=== PATIENT | male | born 1995 | race Caucasian/White ===

== ENCOUNTER 2019-10-02 15:41 | Emergency (ER) | payer SELFPAY ==
[~2019-10-02] VITALS: Ht 165.1 cm; Wt 91.0 kg
[2019-10-02 15:46] VITALS: BP 145/96
== END 2019-10-02 17:41 | disposition home or self-care (01) ==
LOC: ER 15:41
DX: R07.89 Other chest pain (principal); F41.9 Anxiety disorder, unspecified; E78.00 Pure hypercholesterolemia, unspecified
CPT/HCPCS: 71045; 93005; 99283

== ENCOUNTER 2019-10-12 17:31 | Emergency (ER) | payer SELFPAY ==
[~2019-10-12] VITALS: Ht 165.1 cm; Wt 90.0 kg
[2019-10-12 19:07] VITALS: BP 155/87
== END 2019-10-12 19:11 | disposition home or self-care (01) ==
LOC: ER 17:31
DX: B34.9 Viral infection, unspecified (principal); F41.9 Anxiety disorder, unspecified; E78.00 Pure hypercholesterolemia, unspecified
CPT/HCPCS: 99281